=== PATIENT | male | born 1975 | race Caucasian/White ===

== ENCOUNTER 2018-07-28 19:47 | Emergency (ER) | payer SELFPAY ==
[2018-07-28] MEDS: DEXAMETHASONE 10 MG/ML 1 ML INJ IM (21:08)
[2018-07-28] MEDS: DIPHENHYDRAMINE 25 MG CAP PO (21:08)
[2018-07-28] MEDS: FAMOTIDINE 20 MG TAB PO (21:08)
== END 2018-07-28 21:37 | disposition home or self-care (01) ==
LOC: FTE 19:47
DX: T78.1XXA Other adverse food reactions, not elsewhere classified, initial encounter (principal); L50.9 Urticaria, unspecified
CPT/HCPCS: 96372; 99284-25